=== PATIENT | female | born 1980 | race Caucasian/White ===

== ENCOUNTER → 2022-05-22 | Day surgery (SDC) | payer OTHER ==
[~2022-05-22] MED LIST: HAIR, SKIN & N1 EACH PO; MIRALAX17 GM PO; OMEPRAZOLE20 M2 PO; PERCOCET 5-3251 EACH PO; PROBIOTIC1 EAC1 PO; PROMETHAZINE HC25 M1 PO
== END | disposition home or self-care (01) ==
LOC: OR 06:56
DX: K81.1 Chronic cholecystitis (principal); K81.0 Acute cholecystitis; J45.909 Unspecified asthma, uncomplicated; F17.210 Nicotine dependence, cigarettes, uncomplicated; Z79.899 Other long term (current) drug therapy; Z72.89 Other problems related to lifestyle
CPT/HCPCS: J0690; J1100; J1170; J2250; J2270; J2405; J2550; J2704; J3010